=== PATIENT | female | born 1980 | race Caucasian/White ===

== ENCOUNTER 2016-12-07 08:42 | Emergency (ER) | payer OTHER ==
[~2016-12-07] VITALS: Ht 170.2 cm; Wt 66.5 kg
[2016-12-07 09:10] VITALS: Ht 170.2 cm; Wt 66.5 kg
[2016-12-07 10:05] LABS: ADD SCAN DIFF NO
[2016-12-07 10:09] LABS: BASOPHILS % 0.1 % (0.0-2.0); EOSINOPHILS # 0.1 10^3/ul (0.0-0.5); EOSINOPHILS % 1.5 % (0.0-7.0); HEMATOCRIT 38.5 % (37.0-47.0); HEMOGLOBIN 12.8 g/dl (12.0-16.0); LYMPHOCYTES # 0.9 10^3/ul (0.8-2.9); LYMPHOCYTES % 10.6 % (15.0-51.0); MEAN CORPUSCULAR HEMOGLOBIN 30.8 pg (29.0-33.0); MEAN CORPUSCULAR HGB CONC 33.2 g/dl (32.0-37.0); MEAN CORPUSCULAR VOLUME 92.8 fl (82.0-101.0); MEAN PLATELET VOLUME 10.9 fl (7.4-10.4); MONOCYTE # 0.3 10^3/ul (0.3-0.9); MONOCYTES % 3.3 % (0.0-11.0); NEUTROPHIL # 6.9 10^3/ul (1.6-7.5); NEUTROPHILS % 83.9 % (39.0-77.0); PLATELET COUNT 213 10^3/UL (140-415); RED BLOOD COUNT 4.15 10^6/ul (4.20-5.40); RED CELL DISTRIBUTION WIDTH 11.9 % (11.5-14.5); WHITE BLOOD COUNT 8.2 10^3/ul (4.8-10.8)
[2016-12-07 10:15] LABS: ADD UMIC NO; URINE BILIRUBIN (Dip) NEGATIVE (NEGATIVE); URINE BLOOD (Dip) NEGATIVE (NEGATIVE); URINE COLOR LT. YELLOW (YELLOW); URINE GLUCOSE (Dip) NEGATIVE (NEGATIVE); URINE KETONES (Dip) NEGATIVE (NEGATIVE); URINE LEUKOCYTE ESTERASE (Dip) NEGATIVE (NEGATIVE); URINE NITRITE (Dip) NEGATIVE (NEGATIVE); URINE TOTAL PROTEIN (Dip) NEGATIVE (NEGATIVE); URINE UROBILINOGEN (Dip) 0.2 E.U./dL (0.1-1.0)
[2016-12-07] MEDS ORDERED: METOCLOPRAMIDE 10 MG TAB PO ONE (10:30)
--- NOTE | 2016-12-07 11:08 | RADRPT ---
PROCEDURE: US Pelvis. CLINICAL INDICATION: vaginal bleeding TECHNIQUE: Multiple sonographic images of the pelvis were obtained utilizing a transabdominal and endovaginal technique. The images were reviewed on a PACS workstation. COMPARISON: None. FINDINGS: The uterus is normal in size and demonstrates a normal appearance of the myometrium. The endometria l stripe is heterogeneous in appearance and has the thickness of 18 mm. No intrauterine gestation is noted. The right ovary was not visualized. The left ovary measures 2.6 x 1.9 x 1.9 cm. There is a trace amount of free fluid in the cul-de-sac. RPTAT: AA IMPRESSION: No intrauterine gestation visualized. Heterogeneous and thickened endometrium. Right ovary not visualized. Differential diagnosis includes early , missed or ectopic . Follow-up ultrasound and HCG levels is recommended. .Corky Arreola MD, Date Time Electronically viewed and signed by .Corky Arreola MD, on 12/07/2016 11:08 .S/
[2016-12-07] MEDS ORDERED: METO10TA92 PO (12:28)
--- NOTE | 2016-12-07 12:33 | ERD ---
ER Documentation Chief Complaint Date/Time DATE: 12/07/16 TIME: 12:29 Chief Complaint PELVIC PAIN/DIZZINESS. PRESUMED 4-WKS . NO BLEEDING/DISCHARGE. HPI Patient is 36-year-old female G 10 P4, approximately 4-5 weeks , who presents the emergency department with pelvic pain and dizziness. Patient states that her symptoms started today at 2 AM. The pain is primarily in the suprapubic region. Patient denies any radiation of the pain. Patient states the pain is episodic in nature. Patient does report some nausea however she denies any vomiting. Patient does report a decreased appetite however she is able to tolerate p.o. fluids. Patient denies any excessive vaginal discharge or vaginal bleeding. Patient denies any fever, chills, chest pain, shortness of breath or loss of consciousness. Patient denies any pain with urination, frequency or urgency. Patient states that she has some dizziness when sitting up in bed. Patient denies any room spinning sensation. Patient denies any syncopal episodes. Patient states she has not seen an SEARCH ENGINE OPTIMIZATION STRATEGIST yet. ROS All systems reviewed and are negative except as per history of present illness. Medications Home Meds Active Scripts Metoclopramide* (Reglan*) 10 Mg Tablet, 10 MG PO Q6 Y for NAUSEA AND/OR VOMITING , #10 TAB Prov:JANAE SKAGGS PA-C 12/07/16 PMhx/Soc History of Surgery: No Anesthesia Reaction: No Hx Neurological Disorder: No Hx Respiratory Disorders: No Hx Cardiac Disorders: No Hx Psychiatric Problems: No Hx Miscellaneous Medical Probl: No Hx Alcohol Use: No Hx Substance Use: No Hx Tobacco Use: No Physical Exam Vitals Vital Signs Date Time Temp Pulse Resp B/P Pulse Ox O2 Delivery O2 Flow Rate FiO2 12/07/16 09:10 99.1 92 20 107/54 97 Physical Exam GENERAL: Well-developed, well-nourished female. Appears in no acute distress. HEAD: Normocephalic, atraumatic. EYES: Pupils are equally reactive bilaterally. EOMs grossly intact. No conjunctival erythema. ENT: Moist mucous membranes. No uvula deviation. No kissing tonsils. NECK: Supple. No meningismus. Normal range of motion of the neck. LUNG: Clear to auscultation bilaterally. No rhonchi, wheezing, rales or coarse breath sounds. HEART: Regular rate and rhythm. No murmurs, rubs or gallops. ABDOMEN: No scars, ecchymosis or rashes noted. Soft, nondistended. Tender to palpation in the suprapubic region. Positive bowel sounds in all four quadrants. No rebound tenderness, no guarding. (-) McBurney's point tenderness. No CVA tenderness. BACK: No midline tenderness. EXTREMITIES: Equal pulses bilaterally. No peripheral clubbing, cyanosis or edema. No unilateral leg swelling. NEUROLOGIC: Alert and oriented x3, cooperative. Mood and affect appropriate to situation. Cranial nerves II through XII are grossly intact. Normal speech. Motor exam: 5/5 strength in upper and lower extremities. Sensory exam: Sensation intact to light touch on all four extremities. Cerebellar function exam: Rapid alternating movements intact. No dysmetria on [id number] test. Steady gait. SKIN: Normal color. Warm and dry. No rashes or lesions. Result Diagram: 12/07/16 1000 Results 24 hrs Laboratory Tests Test 12/07/16 10:00 Basophils # 0.010^3/ul Basophils % 0.1% Beta HCG, Quantitative 1202.5mIU/ml Eosinophils # 0.110^3/ul Eosinophils % 1.5% Hematocrit 38.5% Hemoglobin 12.8g/dl Lymphocytes # 0.910^3/ul Lymphocytes % 10.6% Mean Corpuscular Hemoglobin 30.8pg Mean Corpuscular Hemoglobin Concent 33.2g/dl Mean Corpuscular Volume 92.8fl Mean Platelet Volume 10.9fl Monocytes # 0.310^3/ul Monocytes % 3.3% Neutrophils # 6.910^3/ul Neutrophils % 83.9% Nucleated Red Blood Cells # 0.010^3/ul Nucleated Red Blood Cells % 0.0/100WBC Platelet Count 38876^3/UL Red Blood Count 4.1510^6/ul Red Cell Distribution Width 11.9% Urine Bilirubin NEGATIVE Urine Clarity CLEAR Urine Color LT. YELLOW Urine Glucose NEGATIVE% Urine Hemoglobin NEGATIVE Urine Ketones NEGATIVE Urine Leukocyte Esterase NEGATIVE Urine Nitrite NEGATIVE Urine Specific [place] 1.020 Urine Total Protein NEGATIVE Urine Urobilinogen 0.2 E.U./dL Urine pH 6.0 White Blood Count 8.210^3/ul Current Medications Medications (Trade) Dose Ordered Sig/Devin Route PRN Reason Start Time Stop Time Status Last Admin Dose Admin Metoclopramide HCl (Reglan) 10 mg ONCE ONCE PO 12/07/16 10:30 12/07/16 10:31 DC 12/07/16 10:22 Procedures/MDM ED COURSE: The patient was stable throughout ED course. I kept the patient and/or family informed of laboratory and diagnostic imaging results throughout the ED course. DIAGNOSTIC IMAGING: Read by radiologist. []. DIAGNOSTIC IMAGING REPORT Patient: EDELMIRA HOLMAN : 1980 Age: 36 Sex: F MR #: [id number] DOS: 12/07/16 0950 Ordering MD: JANAE SKAGGS PA-C Location: [facility] Room/Bed: PROCEDURE: US Pelvis. CLINICAL INDICATION: vaginal bleeding TECHNIQUE: Multiple sonographic images of the pelvis were obtained utilizing a transabdominal and endovaginal technique. The images were reviewed on a PACS workstation. COMPARISON: None. FINDINGS: The uterus is normal in size and demonstrates a normal appearance of the myometrium. The endometrial stripe is heterogeneous in appearance and has the thickness of 18 mm. No intrauterine gestation is noted. The right ovary was not visualized. The left ovary measures 2.6 x 1.9 x 1.9 cm. There is a trace amount of free fluid in the cul-de-sac. RPTAT: AA IMPRESSION: No intrauterine gestation visualized. Heterogeneous and thickened endometrium. Right ovary not visualized. Differential diagnosis includes early , missed or ectopic . Follow-up ultrasound and HCG levels is recommended. .Corky Arreola MD, MD Date Time Electronically viewed and signed by .Corky Arreola MD, MD on 12/07/2016 11: 08 .S/ CC: JANAE SKAGGS PA-C PROCEDURES: None. MEDICATIONS GIVEN: Reglan Patient tolerated medication well with no adverse reactions. Patient reported improvement in nausea and dizziness. MEDICAL DECISION MAKING: This is a 36-year-old female presents with pelvic pain and dizziness started earlier this morning. Patient denies any vaginal bleeding. Vital signs were reviewed. Patient was afebrile. Patient was hemodynamically stable. Urine test was positive. Quantitative b-HCG was 1202. CBC showed no evidence of systemic infection or severe anemia. Urinalysis is negative for acute infection or hematuria. Pelvic US showed no intrauterine gestation visualized. Heterogeneous and thickened endometrium. Right ovary not visualized. Given these findings, the patient;s presentation is most consistent with pelvic pain during early . Unable to rule out ectopic at this time. I have a much lower clinical concern for molar , subchorionic hematoma, spontaneous , placental previa, vasa previa, uterine rupture, anembyronic . Low suspicion for UTI, pyelonephritis, nephrolithiasis. PRESCRIPTIONS: Reglan DISCHARGE: At this time, patient is stable for discharge and outpatient management. I discussed patient's case with my supervising physician Dr. Gonzalez. Dr. Gonzalez agrees that the patient should return in 48 hours for a repeat beta-hCG and repeat pelvic ultrasound. SEARCH ENGINE OPTIMIZATION STRATEGIST referral list information provided to the patient. Patient provided with a copy of all imaging and blood work obtained today. I have instructed the patient to promptly return to the ER at any time for any new or worsening symptoms including increased pain, nausea, vomiting, continued bleeding, weakness, syncope or fever. The patient and/or family expressed understanding of and agreement with this plan. All questions were answered. Home care instructions were provided. Departure Diagnosis: Primary Impression: Pelvic pain affecting Condition: Stable Patient Instructions: After Age 35, Pelvic Pain, Unknown Cause Referrals: [facility] YOU HAVE RECEIVED A MEDICAL SCREENING EXAM AND THE RESULTS INDICATE THAT YOU DO NOT HAVE A CONDITION THAT REQUIRES URGENT TREATMENT IN THE EMERGENCY DEPARTMENT. FURTHER EVALUATION AND TREATMENT OF YOUR CONDITION CAN WAIT UNTIL YOU ARE SEEN IN YOUR DOCTORS OFFICE WITHIN THE NEXT 1-2 DAYS. IT IS YOUR RESPONSIBILITY TO MAKE AN APPOINTMENT FOR FOLOW-UP CARE. IF YOU HAVE A PRIMARY DOCTOR --you should call your primary doctor and schedule an appointment IF YOU DO NOT HAVE A PRIMARY DOCTOR YOU CAN CALL OUR PHYSICIAN REFERRAL HOTLINE AT IF YOU CAN NOT AFFORD TO SEE A PHYSICIAN YOU CAN CHOSE FROM THE FOLLOWING [facility] [address] [facility]. [facility] [address] [facility]. [facility] [address] [facility] [address] [facility] [address] [facility]. [facility]. [address] [facility]. [facility] YOU HAVE RECEIVED A MEDICAL SCREENING EXAM AND THE RESULTS INDICATE THAT YOU DO NOT HAVE A CONDITION THAT REQUIRES URGENT TREATMENT IN THE EMERGENCY DEPARTMENT. FURTHER EVALUATION AND TREATMENT OF YOUR CONDITION CAN WAIT UNTIL YOU ARE SEEN IN YOUR DOCTORS OFFICE WITHIN THE NEXT 1-2 DAYS. IT IS YOUR RESPONSIBILITY TO MAKE AN APPOINTMENT FOR FOLOW-UP CARE. IF YOU HAVE A PRIMARY DOCTOR --you should call your primary doctor and schedule and appointment IF YOU DO NOT HAVE A PRIMARY DOCTOR YOU CAN CALL OUR PHYSICIAN REFERRAL HOTLINE AT . IF YOU CAN NOT AFFORD TO SEE A PHYSICIAN YOU CAN CHOSE FROM THE FOLLOWING [facility] INSTITUTIONS: [facility] [address] [place] [address] [facility] [address] [place] [address] [facility] [address] [place] [address] SEARCH ENGINE OPTIMIZATION STRATEGIST [place] [address] [facility] [address] [place], [place] [phone] OFFICE FAX KELLE FRANCIS [address] [place], [place] [phone] DR. BHAT NEWDALE [address] [place], [place] [phone] DESIRE RYAN [address] [facility], [address] [phone] DILMA GAMBOA [address] [place], [place] [phone] [facility] [address] [place], [place] [phone] [address] [facility], [facility] [id number] - JEANIE ANDINO [address], [facility] [phone] MEREDITH, [place] [address] [facility]. [address], [facility] [address] [address] POTTS, [facility] [address] [place] [address] Additional Instructions: Repeat beta-hCG in 2 days. Recommend repeated ultrasound at that time. Return to the emergency department for any new or worsening symptoms including but not limited to severe pain, nausea, vomiting, fever, chills or loss of consciousness. Call your primary care doctor TOMORROW for an appointment during the next 1-2 days.See the doctor sooner or return here if your condition worsens before your appointment time. JANAE SKAGGS PA-C Dec 07, 2016 12:33 JANAE SKAGGS PA-C Dec 07, 2016 12:33
== END 2016-12-07 13:11 | disposition home or self-care (01) ==
LOC: FTE 08:42
DX: O26.891 Other specified pregnancy related conditions, first trimester (principal); R10.2 Pelvic and perineal pain; Z3A.01 Less than 8 weeks gestation of pregnancy
CPT/HCPCS: 36415; 76801; 76817; 81003; 84702; 85025; 86900; 86901; Z7502; Z7610

== ENCOUNTER 2016-12-18 08:06 | Emergency (ER) | payer OTHER ==
[~2016-12-18] VITALS: Ht 162.6 cm; Wt 67.0 kg
[~2016-12-18 08:06] MED LIST: METO10TA92 PO
[2016-12-18 08:14] VITALS: Ht 162.6 cm; Wt 67.0 kg
--- NOTE | 2016-12-18 08:52 | ERD ---
ER Documentation Chief Complaint Date/Time DATE: 12/18/16 TIME: 08:48 Chief Complaint preg vag bleed/ spotting (unknown weeks) HPI Patient is a 33-year-old female G 10 P4 who presents to the emergency department with vaginal spotting. Patient states that her symptoms started approximately 2 days ago. Patient denies using any pads. Patient denies any pain. Patient denies any fever, chills, nausea, vomiting, chest pain, shortness of breath, loss of consciousness. Of note patient was seen by myself on 12-07-16. At that time the patient's beta-hCG was noted to be 1202. Patient' s ultrasound at that time showed no IUP thickened endometrium. Patient was advised to return in 2 days however she is returning today which is approximately 10 days from initial visit. ROS All systems reviewed and are negative except as per history of present illness. Medications Home Meds Active Scripts Metoclopramide* (Reglan*) 10 Mg Tablet, 10 MG PO Q6 Y for NAUSEA AND/OR VOMITING , #10 TAB Prov:JANAE SKAGGS PA-C 12/07/16 PMhx/Soc Medical and Surgical Hx: pt denies Medical Hx, pt denies Surgical Hx History of Surgery: No Anesthesia Reaction: No Hx Neurological Disorder: No Hx Respiratory Disorders: No Hx Cardiac Disorders: No Hx Psychiatric Problems: No Hx Miscellaneous Medical Probl: No Hx Alcohol Use: No Hx Substance Use: No Hx Tobacco Use: No Smoking Status: Never smoker FmHx Family History: No diabetes Physical Exam Vitals Vital Signs Date Time Temp Pulse Resp B/P Pulse Ox O2 Delivery O2 Flow Rate FiO2 12/18/16 08:14 98.0 79 18 99/55 100 Physical Exam GENERAL: Well-developed, well-nourished female. Appears in no acute distress. HEAD: Normocephalic, atraumatic. EYES: Pupils are equally reactive bilaterally. EOMs grossly intact. No conjunctival erythema. ENT: Moist mucous membranes. No uvula deviation. No kissing tonsils. NECK: Supple. No meningismus. Normal range of motion of the neck. LUNG: Clear to auscultation bilaterally. No rhonchi, wheezing, rales or coarse breath sounds. HEART: Regular rate and rhythm. No murmurs, rubs or gallops. ABDOMEN: No scars, ecchymosis or rashes noted. Soft, nontender, and nondistended. Positive bowel sounds in all four quadrants. No rebound tenderness , no guarding. (-) McBurney's point tenderness. No CVA tenderness. BACK: No midline tenderness. EXTREMITIES: Equal pulses bilaterally. No peripheral clubbing, cyanosis or edema. No unilateral leg swelling. NEUROLOGIC: Alert and oriented. Moving all four extremities without any difficulty. Normal speech. Steady gait. SKIN: Normal color. Warm and dry. No rashes or lesions. Result Diagram: 12/18/16 0854 Results 24 hrs Laboratory Tests Test 12/18/16 08:54 12/18/16 09:00 Basophils # 0.010^3/ul Basophils % 0.3% Beta HCG, Quantitative 35267.0mIU/ml Eosinophils # 0.310^3/ul Eosinophils % 3.5% Hematocrit 38.1% Hemoglobin 12.6g/dl Lymphocytes # 2.210^3/ul Lymphocytes % 30.2% Mean Corpuscular Hemoglobin 30.2pg Mean Corpuscular Hemoglobin Concent 33.1g/dl Mean Corpuscular Volume 91.4fl Mean Platelet Volume 11.5fl Monocytes # 0.410^3/ul Monocytes % 5.3% Neutrophils # 4.410^3/ul Neutrophils % 60.0% Nucleated Red Blood Cells # 0.010^3/ul Nucleated Red Blood Cells % 0.0/100WBC Platelet Count 35744^3/UL Red Blood Count 4.1710^6/ul Red Cell Distribution Width 12.2% White Blood Count 7.310^3/ul Urine Bacteria FEW Urine Bilirubin NEGATIVE Urine Clarity CLEAR Urine Color LT. YELLOW Urine Glucose NEGATIVE% Urine Hemoglobin 1+ Urine Ketones NEGATIVE Urine Leukocyte Esterase NEGATIVE Urine Microscopic RBC 2-5/HPF Urine Microscopic WBC NONE SEEN/HPF Urine Nitrite NEGATIVE Urine Specific [place] 1.020 Urine Squamous Epithelial Cells MODERATE Urine Total Protein NEGATIVE Urine Urobilinogen 0.2 E.U./dL Urine pH 6.5 Procedures/MDM ED COURSE: The patient was stable throughout ED course. I kept the patient and/or family informed of laboratory and diagnostic imaging results throughout the ED course. DIAGNOSTIC IMAGING: Read by radiologist. Patient: EDELMIRA HOLMAN : 1980 Age: 36 Sex: F MR #: [id number] DOS: 12/18/16 0845 Ordering MD: JANAE SKAGGS PA-C Location: FT Room/Bed: PROCEDURE: US OB. CLINICAL INDICATION: Vaginal bleeding in . TECHNIQUE: Transabdominal and endovaginal imaging of the uterus is available for review COMPARISON: None available FINDINGS: There is a single intrauterine with a mean sac diameter of 1.1 cm, giving an estimated gestational age of 5 weeks 5 days by ultrasound criteria. No pole or yolk sac is detected. No subchorionic hemorrhage is identified. The ovaries demonstrate a 1.5 cm simple appearing left ovarian cyst. IMPRESSION: Single intrauterine with an estimated gestational age of 5 weeks 5 days by ultrasound criteria. No pole or yolk sac is identified. This may be secondary to early dates. Repeat pelvic ultrasound is recommended in 1 week. RPTAT: HH .Maria D Nguyễn MD, Date Time Electronically viewed and signed by .Maria D Nguyễn MD, MD on 12/18/2016 10 :17 .G/ CC: JANAE SKAGGS PA-C Medical Decision Making: This is a 36-year-old female, G 10 P4, who presents emergency department with vaginal spotting which started 3 days ago. Vital signs were reviewed. Patient is afebrile. Patient is hemodynamically stable. She was initially seen here in the emergency department on 12-06-16 at that time noted to have a beta-hCG level of 1202 and her ultrasound showed no intrauterine , thickened endometrium. Beta-hCG today was 26870. CBC showed no evidence of systemic infection or severe anemia. Patient is AB positive. She was not given RhoGam.Pelvic US showed Single intrauterine with an estimated gestational age of 5 weeks 5 days by ultrasound criteria. No pole or yolk sac is identified. This may be secondary to early dates. Repeat pelvic ultrasound is recommended in 1 week. Given these findings, the patient's presentation is most consistent with IUP vs threatened . I have a much lower clinical concern for ectopic , ruptured ectopic , molar , subchorionic hematoma, spontaneous , incomplete , complete , missed , placental abruption, anembyronic . Discharge: At this time, patient is stable for discharge and outpatient management. I had a conversation at length with the patient about the concerns of vaginal bleeding during the 1st trimester of . Patient and/or family understands that her vaginal bleeding can be a normal finding or a sign of miscarriage. I have instructed the patient to follow-up with her OBGYN in 1-2 days for further monitoring. Patient will need a repeat ultrasound in 1 week. I have instructed the patient to promptly return to the ER at any time for any new or worsening symptoms including increased pain, nausea, vomiting, continued bleeding, weakness, syncope or fever. The patient and/or family expressed understanding of and agreement with this plan. All questions were answered. Home care instructions were provided. Departure Diagnosis: Primary Impression: Vaginal bleeding during , antepartum Condition: Stable Patient Instructions: Vaginal Bleed in Referrals: KEYBOARDING TEACHER [place] [address] [facility] [address] [place], [place] [phone] OFFICE FAX DR.ABUSLEME KELLE [address] [place], [place] [phone] [facility] [address] [place] [address] [address] [facility] [address] [facility] [address] [address] JOSÉ AN[place] [address] [place], [place] [phone] [facility] [place] [address] [place], [place] [phone] [address] [facility] [address] - JEANIE ANDINO [address], [facility] [address] [address] MEREDITH [facility] [address] [facility] [address], [facility] [phone] [address] [address] [place] [address] Additional Instructions: Call your primary care doctor/OBGYN TOMORROW for an appointment during the next 1-2 days.See the doctor sooner or return here if your condition worsens before your appointment time. JANAE SKAGGS PA-C Dec 18, 2016 08:51 your appointment time. JANAE SKAGGS PA-C Dec 18, 2016 08:51
[2016-12-18 09:08] LABS: ADD SCAN DIFF NO
[2016-12-18 09:14] LABS: ADD UMIC YES; URINE BILIRUBIN (Dip) NEGATIVE (NEGATIVE); URINE BLOOD (Dip) 1+ (NEGATIVE); URINE COLOR LT. YELLOW (YELLOW); URINE GLUCOSE (Dip) NEGATIVE (NEGATIVE); URINE KETONES (Dip) NEGATIVE (NEGATIVE); URINE LEUKOCYTE ESTERASE (Dip) NEGATIVE (NEGATIVE); URINE NITRITE (Dip) NEGATIVE (NEGATIVE); URINE TOTAL PROTEIN (Dip) NEGATIVE (NEGATIVE); URINE UROBILINOGEN (Dip) 0.2 E.U./dL (0.1-1.0)
[2016-12-18 09:20] LABS: BASOPHILS % 0.3 % (0.0-2.0); EOSINOPHILS # 0.3 10^3/ul (0.0-0.5); EOSINOPHILS % 3.5 % (0.0-7.0); HEMATOCRIT 38.1 % (37.0-47.0); HEMOGLOBIN 12.6 g/dl (12.0-16.0); LYMPHOCYTES # 2.2 10^3/ul (0.8-2.9); LYMPHOCYTES % 30.2 % (15.0-51.0); MEAN CORPUSCULAR HEMOGLOBIN 30.2 pg (29.0-33.0); MEAN CORPUSCULAR HGB CONC 33.1 g/dl (32.0-37.0); MEAN CORPUSCULAR VOLUME 91.4 fl (82.0-101.0); MEAN PLATELET VOLUME 11.5 fl (7.4-10.4); MONOCYTE # 0.4 10^3/ul (0.3-0.9); MONOCYTES % 5.3 % (0.0-11.0); NEUTROPHIL # 4.4 10^3/ul (1.6-7.5); PLATELET COUNT 225 10^3/UL (140-415); RED BLOOD COUNT 4.17 10^6/ul (4.20-5.40); RED CELL DISTRIBUTION WIDTH 12.2 % (11.5-14.5); WHITE BLOOD COUNT 7.3 10^3/ul (4.8-10.8)
[2016-12-18 09:51] LABS: BACTERIA,URINE FEW; SQUAMOUS EPITHELIAL CELL,UR MODERATE
--- NOTE | 2016-12-18 10:17 | RADRPT ---
PROCEDURE: US OB. CLINICAL INDICATION: Vaginal bleeding in . TECHNIQUE: Transabdominal and endovaginal imaging of the uterus is available for review COMPARISON: None available FINDINGS: There is a single intrauterine with a mean sac diameter of 1.1 cm, giving an estimated ges tational age of 5 weeks 5 days by ultrasound criteria. No pole or yolk sac is detected. No s ubchorionic hemorrhage is identified. The ovaries demonstrate a 1.5 cm simple appearing left ovarian cyst. IMPRESSION: Single intrauterine with an estimated gestational age of 5 weeks 5 days by ultrasound crit chalino. No pole or yolk sac is identified. This may be secondary to early dates. Repeat pelvic ultrasound is recommended in 1 week. RPTAT: HH .Maria D Nguyễn MD, Date Time Electronically viewed and signed by .Maria D Nguyễn MD, on 12/18/2016 10:17 .G/
[2016-12-18] MEDS ORDERED: PREN1TAB79 PO (12:03)
[2016-12-18 12:06] VITALS: BP 119/67; PULSE 69; RESP 16
== END 2016-12-18 12:06 | disposition home or self-care (01) ==
LOC: FTE 08:06
DX: O20.9 Hemorrhage in early pregnancy, unspecified (principal); R10.2 Pelvic and perineal pain; Z3A.01 Less than 8 weeks gestation of pregnancy
CPT/HCPCS: 36415; 76801; 76817; 81001; 81003; 84702; 85025; 86900; 86901

== ENCOUNTER 2018-12-19 06:24 | Day surgery (SDC) | payer OTHER ==
[2018-12-19] VITALS (14 sets, daily range): BP systolic 92–107; BP diastolic 50–66; PULSE 66–96; RESP 12–29; Ht 162.6 cm; Wt 72.8 kg
[~2018-12-19] VITALS: Ht 162.6 cm; Wt 72.8 kg
[~2018-12-19 06:24] MED LIST changes: +PREN1TAB79 PO
[2018-12-19] MEDS ORDERED: FOLI0.4T2 PO (06:25)
[2018-12-19] MEDS ORDERED: CEFAZOLIN 1 GM INJ ONE ×2 (07:00→08:18)
[2018-12-19] MEDS ORDERED: LIDOCAINE 1%/EPI (1:100,000) (MDV) 20 ML ONE (07:59)
[2018-12-19] MEDS ORDERED: METOCLOPRAMIDE 10 MG INJ ONE (08:15)
[2018-12-19] MEDS ORDERED: PROPOFOL 20 ML ONE (08:15)
[2018-12-19] MEDS ORDERED: MIDAZOLAM 1 MG/ML 2 ML INJ ONE (08:15)
[2018-12-19] MEDS ORDERED: ONDANSETRON 4 MG INJ ONE (08:15)
[2018-12-19] MEDS ORDERED: ROCURONIUM 50 MG INJ ONE (08:15)
[2018-12-19] MEDS ORDERED: DEXAMETHASONE 4 MG/ML 5 ML INJ ONE (08:18)
--- NOTE | 2018-12-19 08:44 | PREAC ---
Date/Time of Note Date/Time of Note DATE: 12/19/18 TIME: 07:42 Anesthesia Eval and Record Evaluation Time Pre-Procedure Interview DATE: 12/19/18 TIME: 08:42 Age 38 Sex female NPO: 8 hrs Preoperative diagnosis left ovarian cyst Planned procedure D&C lap ovaarian cystecctomy Past Medical History Past Medical History: None Surgery & Anesthesia Issues No known issue Meds Anticoagulation: No Beta Ynes within 24 hr: No Reason Beta Ynes not given: Pt. not on B-Ynes Reported Medications Folic Acid* (Folic Acid*) 0.4 Mg Tablet, 0.4 MG PO DAILY, TAB 12/19/18 Discontinued Scripts Vit W-Ca,Fe,FA(<1 mg) ( Vitamins) 1 Each Tablet, 1 EACH PO DAILY, #30 TAB Prov:JANAE SKAGGS PA-C 12/18/16 Metoclopramide* (Reglan*) 10 Mg Tablet, 10 MG PO Q6 PRN for NAUSEA AND/OR VOMITING, #10 TAB Prov:JANAE SKAGGS PA-C 12/07/16 Meds reviewed: Yes Allergies Coded Allergies: Penicillins (Verified Allergy, Unknown, 12/19/18) Allergies Reviewed: Yes Labs/Studies Labs Reviewed: Reviewed by anesthesiologist Result Diagram: 12/19/18 0700 Laboratory Tests 12/19/18 07:00 test: Negative Studies: ECG (n/a), CXR (n/a) Pre-procedure Exam Last vitals Vital Signs Date Temp Pulse Resp B/P (MAP) Pulse Ox O2 O2 Flow FiO2 Time Delivery Rate 12/19/18 98.6 71 18 107/56 98 Room Air 07:14 (73) Airway: Adequate mouth opening Mallampati: Mallampati I Teeth: Abnormal (loose tooth upper left) Lung: Normal Heart: Normal ASA Physical Status ASA physical status: 1 Emergency: None Planned Anesthetic General/MAC: ETT Nerve block: TAP (bilateral) Planned Pain Management Single shot nerve block, Parenteral pain med Pre-operative Attestations Prior to commencing anesthesia and surgery, the patient was re-evaluated, there was verification of: *The patient's identity *The results of appropriate recent lab work and preoperative vital signs *The above evaluation not changing prior to induction *Anesthetic plan, risk benefits, alternative and complications discussed with patient/family; questions answered; patient/family understands, accepts and wishes to proceed. DAVON EVANS MD Dec 19, 2018 08:43
[2018-12-19] MEDS ORDERED: OXYCODONE/ACETAMINOPHEN (5/325) TAB PO PRN ×2 (09:00)
[2018-12-19] MEDS ORDERED: ONDANSETRON 4 MG INJ IV PRN (09:00)
[2018-12-19] MEDS ORDERED: IPRATROPIUM (NEB) 0.5 MG/2.5 ML AMP HHN PRN (09:00)
[2018-12-19] MEDS ORDERED: ALBUTEROL 0.083% (NEB) 2.5 MG/3 ML AMP HHN PRN (09:00)
[2018-12-19] MEDS ORDERED: DIPHENHYDRAMINE 50 MG INJ IV PRN (09:00)
[2018-12-19] MEDS ORDERED: MEPERIDINE 25 MG INJ IV PRN (09:00)
[2018-12-19] MEDS ORDERED: KETOROLAC 30 MG INJ IV PRN (09:00)
[2018-12-19] MEDS ORDERED: HYDROmorphONE 1 MG/5 ML IV SYRINGE IV PRN ×2 (09:00)
[2018-12-19] MEDS ORDERED: HYDROmorphONE 2 MG/ML SYG ONE (09:25)
[2018-12-19] MEDS ORDERED: KETOROLAC 30 MG INJ ONE (09:26)
[2018-12-19] MEDS ORDERED: NEOSTIGMINE 3 MG/3 ML SYRINGE ONE (09:30)
[2018-12-19] MEDS ORDERED: GLYCOPYRROLATE 0.4 MG INJ ONE (09:30)
--- NOTE | 2018-12-19 09:47 | OPPN ---
Date/Time of Note Date/Time of Note DATE: 12/19/18 TIME: 09:44 Operative Report Preoperative Diagnosis Bilateral ovarian cyst Retained POC Postoperative Diagnosis Right ovarian cyst .Retained POC Operation/Procedure Performed Operative laparoscopy .Right ovarian cystectomy D&C&Suction Surgeon see signature line visitor service assistant none Anesthesia: general Estimated blood loss: minimal Transfusion Required none Specimen POC .Right ovarian cyst wall Grafts/Implants none Complications none LEAH MONTALVO M.D. Dec 19, 2018 09:47
--- NOTE | 2018-12-19 10:04 | OPR ---
DATE OF OPERATION: 12/19/2018 PREOPERATIVE DIAGNOSIS: Bilateral ovarian cyst, retained product of conception. POSTOPERATIVE DIAGNOSES: 1. Large right ovarian cyst. 1. Small left ovary . OPERATION PERFORMED: Operative laparoscopy, right ovarian cystectomy and D and C and suction. ATTENDING SURGEON: Kevin Leach MD ANESTHESIOLOGIST: Dr. Knight. ANESTHESIA: General. COMPLICATIONS: None. ESTIMATED BLOOD LOSS: Minimal. DESCRIPTION OF PROCEDURE: The patient was taken to the operating room where general anesthesia was f ound to be adequate. The patient was placed in dorsal decubitus position. After prep and drape, a w eighted speculum was placed inside the vaginal vault. Anterior lip of the cervix was grasped by sing le-tooth tenaculum. Cervix was dilated by Scherer dilators. Suction size 7 was inserted. Intrauterin e cavity was suctioned. Sharp curettage of endometrial cavity was done. Hemostasis achieved. HUMI was inserted. Attention was turned to abdominal field where a 1 cm incision was made above the umbil icus. First trocar was inserted under direct visualization of the camera. Intraabdominal cavity was sealed using 4 liters of CO2. Second and third trocar was placed on both sides of the patient, 8 to 10 cm from the first trocar and a large 5 x 4 cm ovary and cyst were identified. It is likely leaki ng and using a gyrus, right ovarian cystectomy was done. Tissue was sent to pathology. There was cl ear fluid inside the cyst and then left ovary was examined. There was a small 1 x 1 cm follicle that was left alone. Copious irrigation of abdominal and pelvic cavity was done. Hemostasis achieved. Trocars were removed under direct visualization of the camera and then a skin incision was closed usi ng 2-0 chromic sutures. Dermabond was placed on top of the incisions. HUMI was removed. Hemostasis achieved. The patient tolerated the procedure well and was transferred to recovery room in stable c ondition. There was no complication regarding this surgery. Dictated By: KEVIN BOWLES/SOPHIA Conf#: [id number] DID#: [id number]
[2018-12-19] MEDS: HYDROmorphONE 1 MG/5 ML IV SYRINGE IV PRN ×2 (10:12→10:16)
--- NOTE | 2018-12-19 10:33 | PREOPHP ---
DATE OF ADMISSION: 12/19/2018 HISTORY OF PRESENT ILLNESS: This is 38-year-old status post in another center. There was s light tissue left in the lower uterine segment and suspicion of retained products of conception. Pat radha has bilateral ovarian cysts seen by ultrasound. PAST MEDICAL HISTORY: Denies. PAST SURGICAL HISTORY: Denies. ALLERGIES: NKDA. PHYSICAL EXAMINATION: VITAL SIGNS: Stable. GENERAL: Normal. ABDOMEN: Not tender, not distended. GENITAL: Normal exam and. ALLERGIES: PENICILLIN. ASSESSMENT AND PLAN: A 38-year-old with retained products of conception. Bilateral ovarian cysts sc heduled for operative laparoscopy, ovarian cystectomy, D and C and suction and possible laparotomy. Risks and benefits discussed. Risks, alternatives discussed. Risks and benefits of alternatives dis cussed. The patient signed the consent and was taken to the operating room. Dictated By: LEAH BOWLES/SOPHIA Conf#: [id number] DID#: [id number]
--- NOTE | 2018-12-19 12:19 | PAC ---
Date/Time of Note Date/Time of Note DATE: 12/19/18 TIME: 12:19 Post-Anesthesia Notes Post-Anesthesia Note Last documented vital signs Vital Signs Date Temp Pulse Resp B/P (MAP) Pulse Ox O2 O2 Flow FiO2 Time Delivery Rate 12/19/18 98.6 96 22 102/58 99 Room Air 10:41 (73) 12/19/18 8.0 09:51 12/19/18 98.5 09:45 Activity: WNL Respiratory function: WNL Cardiovascular function: WNL Mental status: Baseline Pain reasonably controlled: Yes Hydration appropriate: Yes Nausea/Vomiting absent: No DAVON EVANS MD Dec 19, 2018 12:19
== END 2018-12-19 11:45 | disposition home or self-care (01) ==
LOC: SDS 06:24
PROVIDERS: ATTEND Obstetrics & Gynecology
DX: N83.201 Unspecified ovarian cyst, right side (principal)
CPT/HCPCS: 58662; 85025; 88305; J0690; J1100; J1170; J2175; J2250; J2405; J2710; J2765; Z7512; Z7610; J1885

== ENCOUNTER 2019-05-02 11:52 | Emergency (ER) | payer OTHER ==
[~2019-05-02] VITALS: Ht 162.6 cm; Wt 73.9 kg
[~2019-05-02 11:52] MED LIST changes: +FOLI0.4T2 PO; -METO10TA92 PO; -PREN1TAB79 PO
[2019-05-02 12:08] VITALS: BP 111/59; PULSE 86; RESP 18; Ht 162.6 cm; Wt 73.9 kg
--- NOTE | 2019-05-02 13:04 | ERD ---
ER Documentation Chief Complaint Chief Complaint would like ultrasound 8weeks HPI Patient is a 38 years old female currently at 8 weeks gestation with no known past medical history presenting to the clinic for possible compromise. Patient reports being evaluated by her doctor in [facility] on 05/01 and was informed about no heart tones detected and was advised to get an ultrasound. Patient denies any pelvic pain, fever, chills, night sweats, vaginal discharge, dysuria. ROS All systems reviewed and are negative except as per history of present illness. Medications Home Meds Reported Medications Folic Acid* (Folic Acid*) 0.4 Mg Tablet, 0.4 MG PO DAILY, TAB 12/19/18 Allergies Allergies: Coded Allergies: Penicillins (Verified Allergy, Unknown, 12/19/18) PMhx/Soc History of Surgery: Yes (D AND C 3 WKS AGO) Anesthesia Reaction: No Hx Neurological Disorder: No Hx Respiratory Disorders: No Hx Cardiac Disorders: No Hx Psychiatric Problems: No Hx Miscellaneous Medical Probl: No Hx Alcohol Use: No Hx Substance Use: No Hx Tobacco Use: No Physical Exam Vitals Physical Exam Const: No acute distress Head: Atraumatic Resp: Clear to auscultation bilaterally Cardio: Regular rate and rhythm, no murmurs Abd: Soft, non tender, non distended. Normal bowel sounds Back: No midline or flank tenderness. Negative CVAT. Psych: Normal Mood and Affect Results 24 hrs Laboratory Tests Test 05/02/19 13:05 Urine Color YELLOW Urine Clarity SLIGHTLY CLOUDY Urine pH 7.0 Urine Specific [place] 1.006 Urine Ketones NEGATIVE mg/dL Urine Nitrite NEGATIVE mg/dL Urine Bilirubin NEGATIVE mg/dL Urine Urobilinogen NEGATIVE mg/dL Urine Leukocyte Esterase NEGATIVE Ruddy/ul Urine Microscopic RBC 0 /HPF Urine Microscopic WBC 5 /HPF Urine Squamous Epithelial Cells MODERATE /HPF Urine Hemoglobin NEGATIVE mg/dL Urine Glucose NEGATIVE mg/dL Urine Total Protein NEGATIVE mg/dl Beta HCG, Quantitative 17342.0 mIU/ml Procedures/MDM Patient was seen and evaluated for possible compromise. Urinalysis is unremarkable. Beta hCG measured at 12,427. Transabdominal/vaginal ultrasound revealed 7-[id number]-1-day intrauterine gestation with demise. Small subchorionic hemorrhage. Patient is stable and ready for discharge. Patient was advised about passage of conception. Patient was informed to f/u with [facility] [employer] [facility] for further evaluation and hormone check. Departure Diagnosis: Primary Impression: demise Condition: Stable Patient Instructions: Mifepristone Oral tablet Referrals: [facility] Additional Instructions: Paciente aconseja volver a Departamento de urgencias inmediatamente para sntomas nuevos o que empeoran . Paciente aconseja posteriores con el PCP en 2-3 sherman . Paciente verbaliza la comprehensin y est de acuerdo con el tratamiento y el curso de accin. Si el paciente no tiene ninguna de atencin primaria pueden seguir con [facility] [address] [place] [address] o [facility] + [address] [address] LILO KNOWLES PA-C May 02, 2019 13:04
== END 2019-05-02 15:31 | disposition home or self-care (01) ==
LOC: FTE 11:52
DX: O02.1 Missed abortion (principal)
CPT/HCPCS: 36415; 76801; 76817; 81001; 81003; 84702